=== PATIENT | female | born 1995 | race African-American/Black ===

== ENCOUNTER 2017-01-31 20:04 | Emergency (ER) | payer OTHER ==
[2017-01-31 21:25] LABS: Hematocrit 38 % (35-47); Hemoglobin 12.5 g/dl (12.0-16.0); Mean Corpuscular HGB Conc 33 g/dl (31-36); Mean Corpuscular Hemoglobin 28 pg (27-31); Mean Corpuscular Volume 85 fL (80-97); Mean Platelet Volume 8 um3 (7.4-10.4); Red Blood Count 4.53 10^6/ul (4.0-5.4); Red Cell Distribution Width 15 % (10.5-15); White Blood Count 5.1 10^3/ul (3.5-10.8)
[2017-01-31 21:35] LABS: ALT 9 U/L (7-52); AST 12 U/L (13-39); Albumin 4.3 g/dL (3.2-5.2); Alkaline Phosphatase 67 U/L (34-104); Anion Gap 5 mmol/L (2-11); BUN/Creatinine Ratio 7.5 (8-20); Blood Urea Nitrogen 6 mg/dL (6-24); CO2 Carbon Dioxide 29 mmol/L (22-32); Calcium 9.5 mg/dL (8.6-10.3); Chloride 104 mmol/L (101-111); EGFR African American 118.8 (>60); EGFR Non-African American 92.4 (>60); Globulin 3.5 g/dL (2-4); Glucose 81 mg/dL (70-100); Potassium 3.8 mmol/L (3.5-5.0); Sodium 138 mmol/L (133-145); Total Protein 7.8 g/dL (6.4-8.9)
--- NOTE | 2017-01-31 21:41 | RAD ---
INDICATION: Nonradiating substernal chest pain with exertion. Intermittent shortness of breath. COMPARISON: No relevant prior exams available on the [facility] for comparison. TECHNIQUE: Dual energy PA and routine lateral views of the chest were obtained. REPORT: Clear lungs and pleural spaces. Negative for pneumothorax. The heart, pulmonary vasculature, and mediastinal contours are unremarkable. Unremarkable osseous structures. Obese body habitus. IMPRESSION: No evidence for acute intrathoracic disease.
[2017-02-01] MEDS ORDERED: NS 0.9% 1000 ML* 1,000 ML IV ONE (00:15)
[2017-02-01] MEDS ORDERED: Iohexol 350* (CONTRAST) 500 ML MDV IV ONE (00:23)
[2017-02-01] MEDS ORDERED: Ibuprofen TAB* 600 MG PO ONE (01:16)
--- NOTE | 2017-02-01 01:28 | ED ---
Daniele Zamarripa Rebecca, scribed for Zion Mcgovern on 02/01/17 at 0018 . HPI Chest Pain - HPI Summary HPI Summary: Pt is a 21 y/o F who presents to ED c/o CP and SOB. Sx have been present for 1 week, worsening in the last few days. SOB was initially characterized as dyspnea at exertion but it is now dyspnea at rest, citing one episode of SOB upon waking up from a nap. Associated pain is currently moderate, ranked 7/10. Sx aggravated and alleviated by nothing. Denies edema. Is not on oral contraceptives. PMHx costochondritis. - History of Current Complaint Chief Complaint: EDChestPainROMI Time Seen by Provider: 02/01/17 00:03 Hx Obtained From: Patient Onset/Duration: Started Weeks Ago - 1 week, Still Present, Worse Since - A few days Current Severity: Moderate Pain Intensity: 7 Pain Scale Used: 0-10 Numeric Aggravating Factor(s): Nothing Alleviating Factor(s): Nothing Associated Signs and Symptoms: Positive: Shortness of Breath. Negative: Edema - Allergy/Home Medications Allergies/Adverse Reactions: Allergies Allergy/AdvReac Type Severity Reaction Status Date / Time Nickel Allergy Rash Verified 01/31/17 20:21 PMH/Surg Hx/FS Hx/Imm Hx Cardiovascular History: Reports: Other Cardiovascular Problems/Disorders - Hx Costochondritis Respiratory History: Denies: Hx Asthma Infectious Disease History: No Infectious Disease History: Denies: Traveled Outside the [place] in Last 30 Days - Family History Known Family History: Positive: Unknown - Pt is unsure Review of Systems Positive: Chest Pain Positive: Shortness Of Breath Negative: Edema All Other Systems Reviewed And Are Negative: Yes Physical Exam - Summary Physical Exam Summary: Appearance: Well appearing, no pain distress Skin: warm, dry, reflects adequate perfusion Head/face: normal Eyes: EOMI, DRE ENT: normal Neck: supple, nontender Respiratory: CTA, breath sounds present Cardiovascular: RRR, pulses symmetrical Abdomen: nontender, soft Bowel: present Musculoskeletal: normal, strength/ROM intact Neuro: normal, sensory motor intact, A&Ox3 Triage Information Reviewed: Yes Vital Signs On Initial Exam: Initial Vitals Temp Pulse Resp BP Pulse Ox 97.2 F 79 20 111/65 98 01/31/17 20:17 01/31/17 20:17 01/31/17 20:17 01/31/17 20:17 01/31/17 20:17 Vital Signs Reviewed: Yes Diagnostics - Vital Signs Vital Signs Temp Pulse Resp BP Pulse Ox 01/31/17 22:28 97.2 F 77 18 109/62 100 01/31/17 20:22 97.2 F 79 20 111/65 98 01/31/17 20:17 97.2 F 79 20 111/65 98 - Laboratory Lab Results: Lab Results 01/31/17 01/31/17 01/31/17 Range/Units 21:00 21:00 21:00 WBC 5.1 (3.5-10.8) 10^3/ul RBC 4.53 (4.0-5.4) 10^6/ul Hgb 12.5 (12.0-16.0) g/dl Hct 38 (35-47) % MCV 85 (80-97) fL MCH 28 (27-31) pg MCHC 33 (31-36) g/dl RDW 15 (10.5-15) % Plt Count 303 (150-450) 10^3/ul MPV 8 (7.4-10.4) um3 Neut % (Auto) 50.9 (38-83) % Lymph % (Auto) 39.5 (25-47) % [place] % (Auto) 7.3 (1-9) % Eos % (Auto) 1.9 (0-6) % Baso % (Auto) 0.4 (0-2) % Absolute Neuts (auto) 2.6 (1.5-7.7) 10^3/ul Absolute Lymphs (auto) 2.0 (1.0-4.8) 10^3/ul Absolute Monos (auto) 0.4 (0-0.8) 10^3/ul Absolute Eos (auto) 0.1 (0-0.6) 10^3/ul Absolute Basos (auto) 0 (0-0.2) 10^3/ul Absolute Nucleated RBC 0 10^3/ul Nucleated RBC % 0 D-Dimer, Quantitative 276 H (Less Than 230) ng/mL Sodium 138 (133-145) mmol/L Potassium 3.8 (3.5-5.0) mmol/L Chloride 104 (101-111) mmol/L Carbon Dioxide 29 (22-32) mmol/L Anion Gap 5 (2-11) mmol/L BUN 6 (6-24) mg/dL Creatinine 0.80 (0.51-0.95) mg/dL Est GFR ( Amer) 118.8 (>60) Est GFR (Non-Af Amer) 92.4 (>60) BUN/Creatinine Ratio 7.5 L (8-20) Glucose 81 (70-100) mg/dL Calcium 9.5 (8.6-10.3) mg/dL Total Bilirubin 0.60 (0.2-1.0) mg/dL AST 12 L (13-39) U/L ALT 9 (7-52) U/L Alkaline Phosphatase 67 (34-104) U/L Troponin I 0.00 (<0.04) ng/mL Total Protein 7.8 (6.4-8.9) g/dL Albumin 4.3 (3.2-5.2) g/dL Globulin 3.5 (2-4) g/dL Albumin/Globulin Ratio 1.2 (1-3) Beta HCG, Quant < 0.60 mIU/mL Result Diagrams: 01/31/17 21:00 01/31/17 21:00 Lab Statement: Any lab studies that have been ordered have been reviewed, and results considered in the medical decision making process. - Radiology CXR Xray Interpretation: No Acute Changes - No evidence for acute intrathoracic disease. ED physician reviewed radiology report and agrees. Radiology Interpretation Completed By: Radiologist - CT CTA Chest CT Interpretation: No Acute Changes - No evidence of pathology. ED physician reviewed this radiology report and agrees. CT Interpretation Completed By: Radiologist - EKG 2024 Cardiac Rate: NL - 69 bpm EKG Rhythm: Sinus Rhythm EKG Interpretation: No acute changes Re-Evaluation - Re-Evaluation First Eval Re-Evaluation Time: 01:22 Change: Improved Comment: Discussed results and D/C plan. Chest Pain Course/Dx - Course Assessment/Plan: Pt is a 21 y/o F who presents to ED c/o CP and SOB for 1 week, worsening in the last few days. SOB was initially characterized as dyspnea at exertion but it is now dyspnea at rest, citing one episode of SOB upon waking up from a nap. Associated pain is currently moderate, ranked 7/10. Sx aggravated and alleviated by nothing. Denies edema. Is not on oral contraceptives. PMHx costochondritis. CXR reveals no acute findings. D-Dimer of 276. CTA Chest reveals no acute findings. EKS is sinus rhythm with no acute changes. She will be D/C to home with Dx of atypical chest pain and musculoskeletal chest pain with Rx for Ibuprofen with a follow up with her PCP. She understands and agrees. - Diagnoses Provider Diagnoses: Atypical chest pain, Musculoskeletal chest pain Discharge - Discharge Plan Condition: Stable Disposition: HOME Prescriptions: Ibuprofen TAB* [Motrin TAB* 600 MG] 600 mg PO Q8H PRN #20 tab MDD 3 PRN Reason: Pain Patient Education Materials: Chest Pain (ED), Musculoskeletal Pain (ED) Referrals: [facility] [Primary Care Provider] - 3 Days The documentation as recorded by the Daniele choudhury Rebecca accurately reflects the service I personally performed and the decisions made by , Zion Mcgovern.
[2017-02-01 02:26] VITALS: BP 99/64
--- NOTE | 2017-02-01 07:44 | RAD ---
INDICATION: Chest pain and shortness of breath COMPARISON: None TECHNIQUE: Axial source images were acquired following the administration of 65 mL Omnipaque [address] angiographic technique. Coronal and sagittal reconstructed images were constructed and reviewed. FINDINGS: There there are no filling defects in the pulmonary arteries to indicate acute pulmonary embolic disease. There are no focal infiltrates or effusions. There are no pulmonary parenchymal masses. The heart is normal in size. There is no evidence of pericardial effusion. There is no evidence of aortic aneurysm or dissection. There is no mediastinal, hilar, or axillary lymphadenopathy. The visualized osseous structures appear normal. Limited views of the upper abdomen show no abnormalities. IMPRESSION: No CT of evidence of pulmonary embolism or other acute thoracic pathology.
== END 2017-02-01 02:24 | disposition home or self-care (01) ==
LOC: ED 20:04
DX: R07.89 Other chest pain (principal); R06.02 Shortness of breath
CPT/HCPCS: 36415; 71020; 71275; 80053; 84484; 84702; 85025; 85379; 93005; 99282; Q9967